=== PATIENT | female | born 1945 | race Caucasian/White ===

== ENCOUNTER → 2016-09-21 | Outpatient (CLI) | payer BC, MEDICARE ==
[~2016-09-21] VITALS: Ht 157.5 cm; Wt 50.8 kg
[~2016-09-21] MED LIST: AMLO10TA PO; ASPI325T PO; CATA0.3D TOP; CIPR500T89 PO; FLAG500T PO; IMDU60TA PO; LISI-538 PO; NS 1,000 ML IV ONE; PROPOFOL 200 MG/20 ML VIAL As Ordered ONE; TOPR25TA PO; TYLE325T5 PO; ZEST1TAB9 PO; tums PO
--- NOTE | 2016-09-21 10:14 | ROOR ---
Patient Name: Lora Juan Procedure Date: 09/21/2016 9:57 AM Date of : 1945 Age: 70 Room: [facility] Gender: Female Note Status: Finalized Procedure: Colonoscopy Indications: Screening for colorectal malignant neoplasm Providers: Eamon BE MD Referring MD: TIFFANIE COLBERT DO Requesting Provider: Medicines: Monitored Anesthesia Care Complications: No immediate complications. Procedure: Pre-Anesthesia Assessment: - The heart rate, respiratory rate, oxygen saturations, blood pressure, adequacy of pulmonary ventilation, and response to care were monitored throughout the procedure. The Colonoscope was introduced through the anus and advanced to the cecum, identified by appendiceal orifice and ileocecal valve. The colonoscopy was performed without difficulty. The patient tolerated the procedure well. The quality of the bowel preparation was good. Findings: The perianal and digital rectal examinations were normal. A few medium-mouthed diverticula were found in the sigmoid colon. Small Internal Hemorrhoids. The entire examined colon appeared normal on direct and retroflexion views. The terminal ileum appeared normal. Impression: - Mild diverticulosis in the sigmoid colon. - Small Internal Hemorrhoids. - The entire colon is normal on direct and retroflexion views. - The examined portion of the ileum was normal. - No specimens collected. Recommendation: - Repeat colonoscopy in 10 years for screening purposes. Eamon Be MD Eamon BE MD 09/21/2016 10:14:34 AM This report has been signed electronically. Number of Addenda: 0 Note Initiated On: 09/21/2016 9:57 AM Estimated Blood Loss: Estimated blood loss: none.
[2016-09-21 10:40] VITALS: BP 118/73
== END | disposition home or self-care (01) ==
LOC: M OPP 08:52
PROVIDERS: ATTEND Internal Medicine Gastroenterology
DX: Z12.11 Encounter for screening for malignant neoplasm of colon (principal); K57.30 Diverticulosis of large intestine without perforation or abscess without bleeding; K64.8 Other hemorrhoids; E05.90 Thyrotoxicosis, unspecified without thyrotoxic crisis or storm; F41.9 Anxiety disorder, unspecified; I10 Essential (primary) hypertension; Z88.0 Allergy status to penicillin; Z88.2 Allergy status to sulfonamides; Z91.02 Food additives allergy status; Z79.899 Other long term (current) drug therapy; Z79.82 Long term (current) use of aspirin

== ENCOUNTER 2017-07-20 18:10 | Emergency (ER) | payer OTHER, BC ==
[2017-07-20] MEDS: NS 500 ML IV (19:15)
[2017-07-20] MEDS: fentaNYL 100 MCG/2 ML INJECTION (J3010) IV (19:41)
[2017-07-20] MEDS: ONDANSETRON 4MG/2ML VIAL (J2405) IV (19:41)
[2017-07-20 20:32] LABS: BASO # 0.1 10^3/uL (0.0-0.2); BASO % 0.7 % (0.0-1.0); EOS # 0.2 10^3/uL (0.0-0.50); EOS % 3.1 % (0.0-3.0); HEMATOCRIT 42.4 % (36.0-47.0); HEMOGLOBIN 13.8 g/dl (12.0-15.5); IMMATURE GRANULOCYTE % 0.1 % (0-3.0); LYMPH # 1.7 10^3/uL (1.5-4.5); LYMPH % 24.1 % (24.0-44.0); MEAN CORPUSCULAR HEMOGLOBIN 30.3 pg (27.0-33.0); MEAN CORPUSCULAR HGB CONC 32.5 g/dl (32.0-36.5); MEAN CORPUSCULAR VOLUME 93.2 fl (80.0-96.0); MONO # 0.4 10^3/uL (0.0-0.8); MONO % 5.7 % (0.0-5.0); NEUTROPHILS # 4.6 10^3/uL (1.8-7.7); NEUTROPHILS % 66.3 % (36.0-66.0); PLATELET COUNT, AUTOMATED 228 10^3/uL (150-450); RED BLOOD COUNT 4.55 10^6/uL (4.00-5.40); RED CELL DISTRIBUTION WIDTH 12.2 % (11.5-14.5)
[2017-07-20 20:33] LABS: ALBUMIN 3.9 GM/DL (3.2-5.2); ALBUMIN/GLOBULIN RATIO 0.98 (1.00-1.93); ALKALINE PHOSPHATASE 109 U/L (45-117); ALT/SGPT 37 U/L (12-78); ANION GAP 6 MEQ/L (8-16); AST/SGOT 34 U/L (7-37); BILIRUBIN,DIRECT < 0.1 MG/DL (0.0-0.2); BILIRUBIN,TOTAL 0.2 MG/DL (0.2-1.0); BLOOD UREA NITROGEN 26 MG/DL (7-18); CALCIUM LEVEL 8.7 MG/DL (8.8-10.2); CARBON DIOXIDE LEVEL 26 MEQ/L (21-32); CHLORIDE LEVEL 110 MEQ/L (98-107); CREATININE FOR GFR 0.99 MG/DL (0.55-1.30); GLOMERULAR FILTRATION RATE 58.9 (>39); GLUCOSE, FASTING 129 MG/DL (70-100); LIPASE 290 U/L (73-393); POTASSIUM SERUM 4.1 MEQ/L (3.5-5.1); SODIUM LEVEL 142 MEQ/L (136-145); TOTAL PROTEIN 7.9 GM/DL (6.4-8.2)
[2017-07-20] MEDS ORDERED: ISOVUE-370 76% 100ML VIAL (Q9967) As Ordered (20:42)
[2017-07-20 20:48] LABS: INR 0.96; PROTHROMBIN TIME 12.9 SECONDS (12.4-14.5)
[2017-07-20 20:49] LABS: PARTIAL THROMBOPLASTIN TIME 28.9 SECONDS (26.8-37.9)
[2017-07-20] MEDS: ACETAMINOPHEN TAB 650MG DOSE (2X325MG) PO (22:35)
== END 2017-07-20 23:10 | disposition home or self-care (01) ==
LOC: M ED 18:10
DX: Z04.1 Encounter for examination and observation following transport accident (principal); I10 Essential (primary) hypertension; F41.9 Anxiety disorder, unspecified; Z79.82 Long term (current) use of aspirin; Z79.899 Other long term (current) drug therapy; Z88.0 Allergy status to penicillin; Z91.018 Allergy to other foods; Z88.2 Allergy status to sulfonamides
CPT/HCPCS: J2405

== ENCOUNTER 2017-10-06 09:44 | Inpatient (IN) | payer MEDICARE, BC, OTHER ==
[2017-10-06 10:39] LABS: BASO % 0.3 % (0.0-1.0); EOS # 0.1 10^3/uL (0.0-0.50); EOS % 0.9 % (0.0-3.0); HEMATOCRIT 38.7 % (36.0-47.0); HEMOGLOBIN 12.5 g/dl (12.0-15.5); IMMATURE GRANULOCYTE % 0.3 % (0-3.0); LYMPH # 1.4 10^3/uL (1.5-4.5); LYMPH % 14.1 % (24.0-44.0); MEAN CORPUSCULAR HEMOGLOBIN 30.6 pg (27.0-33.0); MEAN CORPUSCULAR HGB CONC 32.3 g/dl (32.0-36.5); MEAN CORPUSCULAR VOLUME 94.9 fl (80.0-96.0); MONO # 0.5 10^3/uL (0.0-0.8); MONO % 5.1 % (0.0-5.0); NEUTROPHILS # 8.1 10^3/uL (1.8-7.7); NEUTROPHILS % 79.3 % (36.0-66.0); PLATELET COUNT, AUTOMATED 212 10^3/uL (150-450); RED BLOOD COUNT 4.08 10^6/uL (4.00-5.40); RED CELL DISTRIBUTION WIDTH 12.5 % (11.5-14.5); WHITE BLOOD COUNT 10.2 10^3/uL (4.0-10.0)
[2017-10-06 10:51] LABS: INR 0.98; PARTIAL THROMBOPLASTIN TIME 24.4 SECONDS (26.8-37.9); PROTHROMBIN TIME 13.1 SECONDS (12.4-14.5)
[2017-10-06 11:00] LABS: ALBUMIN 3.6 GM/DL (3.2-5.2); ALBUMIN/GLOBULIN RATIO 1.03 (1.00-1.93); ALKALINE PHOSPHATASE 75 U/L (45-117); ALT/SGPT 26 U/L (12-78); ANION GAP 8 MEQ/L (8-16); AST/SGOT 14 U/L (7-37); BILIRUBIN,DIRECT 0.1 MG/DL (0.0-0.2); BILIRUBIN,TOTAL 0.5 MG/DL (0.2-1.0); BLOOD UREA NITROGEN 42 MG/DL (7-18); CARBON DIOXIDE LEVEL 27 MEQ/L (21-32); CHLORIDE LEVEL 111 MEQ/L (98-107); CPK CREATINE PHOSPHOKINASE 41 U/L (26-192); CREATININE FOR GFR 0.94 MG/DL (0.55-1.30); FREE T4 0.99 NG/DL (0.76-1.46); GLOMERULAR FILTRATION RATE > 60.0 (>39); GLUCOSE, FASTING 111 MG/DL (70-100); POTASSIUM SERUM 4.1 MEQ/L (3.5-5.1); SODIUM LEVEL 146 MEQ/L (136-145); TOTAL PROTEIN 7.1 GM/DL (6.4-8.2); TROPONIN I < 0.02 NG/ML (< 0.10)
[2017-10-06 11:05] LABS: CK-MB VALUE MASS < 1.0 NG/ML (<3.6); MB/CK RELATIVE INDEX 2.43 (< OR =4); THYROID STIMULATING HORMONE 0.748 uIU/ML (0.358-3.740)
[2017-10-06] MEDS: NS 1,000 ML IV ×2 (11:06→18:35)
[2017-10-06 11:20] LABS: LIPASE 168 U/L (73-393); MAGNESIUM LEVEL 2.1 MG/DL (1.8-2.4); PHOSPHORUS LEVEL 2.6 MG/DL (2.5-4.9)
[2017-10-06] MEDS: NS 500 ML IV ×2 (11:32→14:15)
[2017-10-06] MEDS: GASTROGRAFIN SOLUTION 30ML PO ×2 (11:55→12:05)
[2017-10-06] MEDS ORDERED: traMADol 50 MG TAB PO (15:00)
[2017-10-06] MEDS: PANTOPRAZOLE 40MG INJ (PROTONIX) (C9113) IV ×2 (15:10→20:41)
[2017-10-06] MEDS ORDERED: GLUCAGON FOR INJ 1 MG VIAL (J1610) SC (18:30)
[2017-10-06] MEDS ORDERED: GLUCOSE 4 GM CHEW TABLET PO (18:30)
[2017-10-06] MEDS ORDERED: DEXTROSE 50% 50 ML SYRINGE IV (18:30)
[2017-10-06] MEDS: METOPROLOL SUCC *XL* 25MG TAB (TopROL *XL*) PO (20:41)
[2017-10-06 21:13] LABS: CK-MB VALUE MASS 1.1 NG/ML (<3.6); CPK CREATINE PHOSPHOKINASE 53 U/L (26-192); MB/CK RELATIVE INDEX 2.07 (< OR =4); TROPONIN I < 0.02 NG/ML (< 0.10)
[2017-10-07 00:12] LABS: HEMATOCRIT 30.7 % (36.0-47.0)
[2017-10-07 01:18] LABS: BEDSIDE GLUCOSE 74 MG/DL (83-110)
[2017-10-07] MEDS: NS 1,000 ML IV (03:39)
[2017-10-07 05:12] LABS: HEMATOCRIT 30.8 % (36.0-47.0); HEMOGLOBIN 10.1 g/dl (12.0-15.5); MEAN CORPUSCULAR HEMOGLOBIN 30.5 pg (27.0-33.0); MEAN CORPUSCULAR HGB CONC 32.8 g/dl (32.0-36.5); MEAN CORPUSCULAR VOLUME 93.1 fl (80.0-96.0); PLATELET COUNT, AUTOMATED 169 10^3/uL (150-450); RED BLOOD COUNT 3.31 10^6/uL (4.00-5.40); RED CELL DISTRIBUTION WIDTH 12.3 % (11.5-14.5); WHITE BLOOD COUNT 7.2 10^3/uL (4.0-10.0)
[2017-10-07 05:50] LABS: ALBUMIN 3.1 GM/DL (3.2-5.2); ALBUMIN/GLOBULIN RATIO 1.11 (1.00-1.93); ALKALINE PHOSPHATASE 65 U/L (45-117); ALT/SGPT 22 U/L (12-78); ANION GAP 8 MEQ/L (8-16); AST/SGOT 17 U/L (7-37); BILIRUBIN,TOTAL 0.7 MG/DL (0.2-1.0); BLOOD UREA NITROGEN 22 MG/DL (7-18); CALCIUM LEVEL 8.2 MG/DL (8.8-10.2); CARBON DIOXIDE LEVEL 25 MEQ/L (21-32); CHLORIDE LEVEL 113 MEQ/L (98-107); CK-MB VALUE MASS 1.8 NG/ML (<3.6); CPK CREATINE PHOSPHOKINASE 68 U/L (26-192); CREATININE FOR GFR 0.69 MG/DL (0.55-1.30); GLOMERULAR FILTRATION RATE > 60.0 (>39); GLUCOSE, FASTING 79 MG/DL (70-100); MAGNESIUM LEVEL 1.9 MG/DL (1.8-2.4); MB/CK RELATIVE INDEX 2.64 (< OR =4); SODIUM LEVEL 146 MEQ/L (136-145); TOTAL PROTEIN 5.9 GM/DL (6.4-8.2); TROPONIN I 0.02 NG/ML (< 0.10)
[2017-10-07] MEDS: METOPROLOL SUCC *XL* 25MG TAB (TopROL *XL*) PO ×2 (09:03→21:27)
[2017-10-07] MEDS: SUCRALFATE SUSP 1GM/10ML UD PO ×4 (09:03→21:27)
[2017-10-07] MEDS: PANTOPRAZOLE 40MG INJ (PROTONIX) (C9113) IV ×2 (09:04→21:28)
[2017-10-07] MEDS: NS 0.45% 1,000 ML IV (10:16)
[2017-10-07] MEDS: ACETAMINOPHEN 500 MG TAB PO (15:25)
[2017-10-08 00:21] LABS: HEMATOCRIT 28.1 % (36.0-47.0); HEMOGLOBIN 9.5 g/dl (12.0-15.5)
[2017-10-08 05:56] LABS: HEMATOCRIT 29.8 % (36.0-47.0); HEMOGLOBIN 9.9 g/dl (12.0-15.5)
[2017-10-08 06:21] LABS: ANION GAP 4 MEQ/L (8-16); BLOOD UREA NITROGEN 10 MG/DL (7-18); CALCIUM LEVEL 8.9 MG/DL (8.8-10.2); CARBON DIOXIDE LEVEL 29 MEQ/L (21-32); CHLORIDE LEVEL 110 MEQ/L (98-107); CREATININE FOR GFR 0.69 MG/DL (0.55-1.30); GLOMERULAR FILTRATION RATE > 60.0 (>39); GLUCOSE, FASTING 102 MG/DL (70-100); POTASSIUM SERUM 3.7 MEQ/L (3.5-5.1); SODIUM LEVEL 143 MEQ/L (136-145)
[2017-10-08] MEDS: SUCRALFATE SUSP 1GM/10ML UD PO ×4 (07:30→21:35)
[2017-10-08] MEDS: PANTOPRAZOLE 40MG INJ (PROTONIX) (C9113) IV ×2 (08:48→21:37)
[2017-10-08] MEDS: METOPROLOL SUCC *XL* 25MG TAB (TopROL *XL*) PO ×2 (08:48→21:33)
[2017-10-08] MEDS: ACETAMINOPHEN 500 MG TAB PO ×2 (10:10→20:14)
[2017-10-08] MEDS: D5W/0.45% SODIUM CHLORIDE 1,000 ML IV (12:16)
[2017-10-08 12:26] LABS: HEMATOCRIT 30.4 % (36.0-47.0); HEMOGLOBIN 10.2 g/dl (12.0-15.5)
[2017-10-08] MEDS: SODIUM CHLORIDE 0.9% INJ 10 ML SYR IV (17:48)
[2017-10-08 19:33] LABS: HEMATOCRIT 28.1 % (36.0-47.0); HEMOGLOBIN 9.3 g/dl (12.0-15.5)
[2017-10-09] MEDS: SODIUM CHLORIDE 0.9% INJ 10 ML SYR IV ×2 (00:20→05:45)
[2017-10-09 00:29] LABS: HEMATOCRIT 28.9 % (36.0-47.0); HEMOGLOBIN 9.7 g/dl (12.0-15.5)
[2017-10-09 06:32] LABS: HEMATOCRIT 29.5 % (36.0-47.0); HEMOGLOBIN 9.8 g/dl (12.0-15.5)
[2017-10-09 07:22] LABS: ANION GAP 8 MEQ/L (8-16); BLOOD UREA NITROGEN 11 MG/DL (7-18); CALCIUM LEVEL 8.7 MG/DL (8.8-10.2); CARBON DIOXIDE LEVEL 29 MEQ/L (21-32); CHLORIDE LEVEL 108 MEQ/L (98-107); CREATININE FOR GFR 0.71 MG/DL (0.55-1.30); GLOMERULAR FILTRATION RATE > 60.0 (>39); GLUCOSE, FASTING 98 MG/DL (70-100); POTASSIUM SERUM 3.7 MEQ/L (3.5-5.1); SODIUM LEVEL 145 MEQ/L (136-145)
[2017-10-09] MEDS: SUCRALFATE SUSP 1GM/10ML UD PO ×2 (07:52→12:42)
[2017-10-09] MEDS: METOPROLOL SUCC *XL* 25MG TAB (TopROL *XL*) PO (07:52)
[2017-10-09] MEDS: PANTOPRAZOLE 40MG INJ (PROTONIX) (C9113) IV (07:53)
[2017-10-09] MEDS: ACETAMINOPHEN 500 MG TAB PO (09:45)
[2017-10-09 11:32] LABS: HEMATOCRIT 29.3 % (36.0-47.0); HEMOGLOBIN 9.9 g/dl (12.0-15.5)
[2017-10-10 00:06] LABS: H PYLORI STOOL ANTIGEN Negative (Negative)
[2017-10-11 00:07] LABS: O+P EXAM Final report (.)
== END 2017-10-09 14:04 | disposition home or self-care (01) | DRG 391 ==
LOC: M MS4PR 10-08 09:06 → M ED 09:44 → M ED INP 14:43 → M PCU 18:08
PROC: 02HV33Z Insertion of Infusion Device into Superior Vena Cava, Percutaneous Approach (ICD-10-PCS; principal; 2017-10-08)
DX: A08.4 Viral intestinal infection, unspecified (principal); K27.4 Chronic or unspecified peptic ulcer, site unspecified, with hemorrhage; E87.0 Hyperosmolality and hypernatremia; E86.0 Dehydration; I10 Essential (primary) hypertension

== ENCOUNTER → 2017-11-30 | Outpatient (CLI) | payer BC ==
[2017-11-30 12:02] LABS: BASO # 0.1 10^3/uL (0.0-0.2); BASO % 0.6 % (0.0-1.0); EOS # 0.1 10^3/uL (0.0-0.50); EOS % 1.6 % (0.0-3.0); HEMOGLOBIN 11.3 g/dl (12.0-15.5); IMMATURE GRANULOCYTE % 0.1 % (0-3.0); LYMPH # 1.9 10^3/uL (1.5-4.5); LYMPH % 24.6 % (24.0-44.0); MEAN CORPUSCULAR HEMOGLOBIN 27.9 pg (27.0-33.0); MEAN CORPUSCULAR HGB CONC 30.5 g/dl (32.0-36.5); MEAN CORPUSCULAR VOLUME 91.4 fl (80.0-96.0); MONO # 0.5 10^3/uL (0.0-0.8); MONO % 6.3 % (0.0-5.0); NEUTROPHILS # 5.2 10^3/uL (1.8-7.7); NEUTROPHILS % 66.8 % (36.0-66.0); PLATELET COUNT, AUTOMATED 249 10^3/uL (150-450); RED BLOOD COUNT 4.05 10^6/uL (4.00-5.40); RED CELL DISTRIBUTION WIDTH 13.4 % (11.5-14.5); WHITE BLOOD COUNT 7.7 10^3/uL (4.0-10.0)
== END ==
LOC: M ADAMS 10:21
DX: K92.1 Melena (principal); D64.9 Anemia, unspecified
CPT/HCPCS: 85025

== ENCOUNTER 2017-12-13 12:27 | Day surgery (SDC) | payer BC, MEDICARE ==
[2017-12-13] MEDS ORDERED: LIDOCAINE 2% INJ 100 MG/5 ML SDV (FOR ANES.) As Ordered (13:13)
[2017-12-13] MEDS ORDERED: PROPOFOL 200 MG/20 ML VIAL As Ordered (13:13)
[2017-12-13] MEDS: NS 1,000 ML IV (13:23)
== END 2017-12-13 15:19 | disposition home or self-care (01) ==
LOC: M OPP 12:27
DX: D62 Acute posthemorrhagic anemia (principal); K92.1 Melena; K31.89 Other diseases of stomach and duodenum; K29.70 Gastritis, unspecified, without bleeding; I10 Essential (primary) hypertension; E05.90 Thyrotoxicosis, unspecified without thyrotoxic crisis or storm; Z87.19 Personal history of other diseases of the digestive system; K57.32 Diverticulitis of large intestine without perforation or abscess without bleeding; K21.9 Gastro-esophageal reflux disease without esophagitis; R12 Heartburn; R23.3 Spontaneous ecchymoses; R53.1 Weakness; M19.90 Unspecified osteoarthritis, unspecified site; F41.9 Anxiety disorder, unspecified; R51 Headache; Z91.018 Allergy to other foods; Z88.0 Allergy status to penicillin; Z88.2 Allergy status to sulfonamides; Z79.899 Other long term (current) drug therapy
CPT/HCPCS: 43239

== ENCOUNTER → 2018-01-15 | Outpatient (REF) | payer BC | LOC: M LAB REF 16:46 | DX: N39.0 Urinary tract infection, site not specified (principal) | CPT/HCPCS: 87186 ==

== ENCOUNTER 2018-11-21 11:19 | Emergency (ER) | payer BC ==
[~2018-11-21] VITALS: Ht 157.5 cm; Wt 48.3 kg
[~2018-11-21 11:19] MED LIST changes: +ASPI-1 PO; -ASPI325T PO; +CIPR-249 PO; -CIPR500T89 PO; +LISI10TA4 PO; +METO1TAB7 PO; -NS 1,000 ML IV ONE; +PANT40TA3 PO; -PROPOFOL 200 MG/20 ML VIAL As Ordered ONE; +[UNRECOGNIZED DRUG - CODE] TOP
[2018-11-21] MEDS ORDERED: NS 1,000 ML IV ONE (12:00)
[2018-11-21] MEDS ORDERED: IPRATROPIUM 0.5MG/ALBUTEROL 2.5MG INH SOL UD 3ML (DUONEB)(J7620) NEB ONE (12:00)
[2018-11-21 12:57] LABS: BASO % 0.5 % (0.0-1.0); EOS # 0.1 10^3/uL (0.0-0.50); HEMATOCRIT 43.3 % (36.0-47.0); HEMOGLOBIN 13.8 g/dl (12.0-15.5); LYMPH # 1.9 10^3/uL (1.5-4.5); LYMPH % 23.6 % (24.0-44.0); MEAN CORPUSCULAR HEMOGLOBIN 31.2 pg (27.0-33.0); MEAN CORPUSCULAR HGB CONC 31.9 g/dl (32.0-36.5); MONO # 0.6 10^3/uL (0.0-0.8); MONO % 7.8 % (0.0-5.0); NEUTROPHILS # 5.4 10^3/uL (1.8-7.7); NEUTROPHILS % 66.9 % (36.0-66.0); PLATELET COUNT, AUTOMATED 234 10^3/uL (150-450); RED BLOOD COUNT 4.42 10^6/uL (4.00-5.40)
[2018-11-21 13:08] LABS: INR 1.01
[2018-11-21 13:12] LABS: MONO SCRN NEGATIVE (NEGATIVE)
[2018-11-21] MEDS ORDERED: ALPRAZolam 0.25 MG TAB PO ONE (13:15)
[2018-11-21 13:26] LABS: ALBUMIN 3.6 GM/DL (3.2-5.2); ALT/SGPT 75 U/L (12-78); BILIRUBIN,DIRECT 0.1 MG/DL (0.0-0.2); BILIRUBIN,TOTAL 0.4 MG/DL (0.2-1.0); BLOOD UREA NITROGEN 34 MG/DL (7-18); CALCIUM LEVEL 9.8 MG/DL (8.8-10.2); CARBON DIOXIDE LEVEL 27 MEQ/L (21-32); CHLORIDE LEVEL 107 MEQ/L (98-107); CK-MB VALUE MASS < 1.0 NG/ML (<3.6); CPK CREATINE PHOSPHOKINASE 74 U/L (26-192); CREATININE FOR GFR 0.89 MG/DL (0.55-1.30); GLOMERULAR FILTRATION RATE > 60.0 (>39); GLUCOSE, FASTING 103 MG/DL (70-100); MB/CK RELATIVE INDEX 1.35 (< OR =4); NT-PRO BNP 164 PG/ML (<125); POTASSIUM SERUM 4.4 MEQ/L (3.5-5.1); SODIUM LEVEL 141 MEQ/L (136-145); THYROID STIMULATING HORMONE 0.961 uIU/ML (0.358-3.740); THYROXINE (T4) 10.8 UG/DL (4.5-12.0); TOTAL PROTEIN 8.2 GM/DL (6.4-8.2); TROPONIN I < 0.02 NG/ML (< 0.10)
[2018-11-21 13:45] LABS: BILIRUBIN, URINE MANUAL N (NEGATIVE); GLUCOSE, URINE (UA) MANUAL N mg/dL (NEGATIVE); KETONE, URINE MANUAL N mg/dL (NEGATIVE); UROBILINOGEN, URINE MANUAL N mg/dl (NORMAL)
--- NOTE | 2018-11-21 13:50 | REP ---
CHEST X-RAY: Two views. HISTORY: Dyspnea and cough. COMPARISON STUDY: October 06, 2017. FINDINGS: There is a new opacity in the right medial lung base on today's chest x-ray which may be infiltrate. It is not visualized on the lateral radiograph. Heart is not enlarged. Lung rubin are otherwise clear. The aorta somewhat tortuous. Pulmonary vasculature is not increased. IMPRESSION: Large opacity in the right medial lung base new from the prior study may reflect infiltrate. This is not seen on lateral radiograph. Consider chest CT scanning. Electronically Signed by Sourav Pop MD 11/21/2018 02:20 P
[2018-11-21 13:54] LABS: AMORPHOUS SEDIMENT, URINE SMALL AMOUNT (NEGATIVE); BACTERIA, URINE SMALL AMOUNT; HYALINE CAST, URINE NONE SEEN /lpf (0-1); MUCUS, URINE SMALL AMOUNT (NEGATIVE); SQUAMOUS EPITHELIAL CELL URINE SMALL AMOUNT /hpf (SMALL AMT); TRANSITIONAL EPI CELLS, URINE SMALL AMOUNT /hpf
[2018-11-21] MEDS ORDERED: ISOVUE-370 76% 100ML VIAL (Q9967) As Ordered ONE (14:26)
--- NOTE | 2018-11-21 14:51 | REP ---
Clinical: Abdominal pain. Technique: Axial contrast enhanced images from the lung bases to the pubic symphysis using 100 ml Isovue 70 intravenous contrast material with coronal and sagittal re-formations. Comparison: 10/06/2017. Findings: The lung bases demonstrate mass-like consolidation in the basilar right middle lobe. Liver demonstrates few scattered hypodensities suggesting cysts and stable compared to prior examination. Spleen, pancreas, gallbladder, and bilateral adrenal glands are normal. Kidneys demonstrate bilateral cysts along with small 2 mm nonobstructing bilateral intrarenal calculi. Evaluation of the enteric system demonstrates mucosal thickening involving the sigmoid colon suggesting the possibility of infectious/inflammatory colitis. No bowel obstruction or free air to suggest perforation. Pelvis demonstrates normal bladder and evidence of prior hysterectomy. No ascites. No free air. No adenopathy. Abdominal aorta without aneurysm or dissection. Musculoskeletal structures demonstrate degenerative changes. Impression: 1. Hepatic and renal cysts essentially unchanged compared to prior examination. 2. Bilateral nephrolithiasis without hydronephrosis or perinephric stranding. 3. Findings suggesting sigmoid colitis and correlation is recommended. 4. Mass-like consolidation in the basilar right middle lobe requires followup to resolution. Electronically Signed by Peter Deng MD 11/21/2018 02:42 P
--- NOTE | 2018-11-21 15:02 | REP ---
CT of the chest with IV contrast: Comparison is the PA and lateral chest performed earlier today. There is a bilobed 3.7 cm mass in the medial segment right middle lobe corresponding to the density inferiorly in the right lung on the comparison plain film study. This mass was not present on the prior CT of 03/01/2011. Images from the prior prior CT dated 07/20/2017 are not available for reasons unknown to this examiner. The transcribed report of that CT does not described a mass in this location. The remainder of the lung rubin are clear and unchanged. The there is no mediastinal or hilar lymph node enlargement. There is no axillary lymph node enlargement. The thoracic aorta is unremarkable. Cardiac size is normal. There is no pericardial effusion. In the upper abdomen there is a cyst in the dome of the liver measuring approximate 1 cm in diameter. There is no adrenal mass. There are parapelvic cysts in the kidneys. Impression: There is a 3.7 cm bilobed mass in the medial segment right middle lobe as described. There is no adenopathy, infiltrate or effusion. Electronically Signed by Nathan Espinoza MD 11/21/2018 02:53 P
[2018-11-21] MEDS ORDERED: CIPR-249 PO (16:37)
[2018-11-21] MEDS ORDERED: FLAG500T PO (16:37)
[2018-11-21 16:57] VITALS: BP 159/74
--- NOTE | 2018-11-22 21:49 | ECGEPIP ---
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
--- NOTE | 2018-11-25 21:04 | ED PDOC ---
Post-Departure Follow-Up also ct abd/p and cxr faxed to dr cantu for fu Kyrie Canela MD Nov 25, 2018 21:04
--- NOTE | 2018-11-25 21:04 | ED PDOC ---
Post-Departure Follow-Up dr dunne faxed formal report of ct chest for fu Kyrie Canela MD Nov 25, 2018 21:03
== END 2018-11-21 16:59 | disposition home or self-care (01) ==
LOC: M ED 11:19
DX: R91.1 Solitary pulmonary nodule (principal); K52.9 Noninfective gastroenteritis and colitis, unspecified; E11.9 Type 2 diabetes mellitus without complications; I10 Essential (primary) hypertension; E05.90 Thyrotoxicosis, unspecified without thyrotoxic crisis or storm; F41.9 Anxiety disorder, unspecified; Z79.899 Other long term (current) drug therapy; Z88.0 Allergy status to penicillin; Z88.2 Allergy status to sulfonamides
CPT/HCPCS: 36415; 71046; 71260; 74177; 80048; 80076; 81000; 82550; 82553; 83880; 84436; 84443; 84484; 85025; 85610; 86308; 87086; 87880; 93005; 94640; 99284; Q9967

== ENCOUNTER → 2018-12-18 | Outpatient (CLI) | payer BC ==
--- NOTE | 2018-12-19 08:57 | REP ---
Clinical: Follow up abnormal findings. Technique: Axial noncontrast images from the thoracic inlet to the upper abdomen with coronal and sagittal re-formations. Comparison: 11/21/2018. Findings: Bilobed mass/consolidation involving the medial right middle lobe currently measures approximately 2.5 cm maximal diameter and appears decreased in size compared to prior examination. Remainder of the bilateral lung rubin are relatively well aerated and clear. No further consolidation, nodule or mass lesion. No effusion. No pneumothorax. Evaluation for adenopathy is limited due to lack of contrast but no significant pathologic lymph nodes are identified. Thoracic aorta and heart/pericardium appear relatively normal. Surrounding musculoskeletal structures without focal osseous abnormality. Limited upper abdomen demonstrates normal bilateral adrenal glands along with suspected hepatic and renal cysts. Impression: Bilobed area of mass / consolidation in the right middle lobe slightly decreased in size from prior examination. Consider continued short-term follow-up at 3 months to evaluate for complete resolution. Electronically Signed by Peter Deng MD 12/19/2018 08:48 A
== END ==
LOC: M RAD 08:53
PROVIDERS: ATTEND Internal Medicine Pulmonary Disease
DX: R91.8 Other nonspecific abnormal finding of lung field (principal)

== ENCOUNTER → 2019-03-07 | Outpatient (CLI) | payer BC ==
--- NOTE | 2019-03-07 12:40 | REP ---
CT CHEST WITHOUT CONTRAST: HISTORY: Abnormal finding of the lung field. Comparison chest CT study is from November 21, 2018 and December 18, 2018. There is a comparison chest CT study from July 20, 2017 as well. A remote chest CT study is dated March 01, 2011. CT FINDINGS: There is a linear fibroatelectatic density in the right middle lobe, decreased in size from the December 18, 2018 prior study. It remains more prominent than the fibrosis seen in this location on July 20, 2017. No pulmonary parenchymal mass lesion or central endobronchial or hilar lesion is appreciated. There is stable pleuroparenchymal scarring in the left apex. This is unchanged from the 2011 study. No other significant pulmonary nodule. No new infiltrate is seen. No pleural or pericardial effusion is observed. No hilar or mediastinal mass or adenopathy is seen. There is a cyst in the liver near the dome 1.2 cm in greatest diameter. No adrenal lesion is seen. There is a right upper pole renal cyst and an intrarenal calculus again noted. Left renal cysts are also present. 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 Otherwise stable findings. Electronically Signed by Sourav Pop MD 03/07/2019 06:29 P
== END ==
LOC: M RAD 07:57
PROVIDERS: ATTEND Internal Medicine Pulmonary Disease
DX: R91.8 Other nonspecific abnormal finding of lung field (principal)

== ENCOUNTER → 2019-05-07 | Outpatient (REF) | payer BC | LOC: M LABDRWAD 12:59 | PROVIDERS: ATTEND Internal Medicine Cardiovascular Disease | DX: I49.1 Atrial premature depolarization (principal) ==

== ENCOUNTER → 2019-09-05 | Outpatient (CLI) | payer OTHER ==
--- NOTE | 2019-09-05 15:16 | REP ---
REASON FOR EXAM: Followup. All priors were reviewed, the latest of which is dated 03/07/2019 and showed chronic fibrotic changes in the right middle lobe and other chronic changes, status quo. Mediastinum and pulmonary hoang are unchanged. There is no evidence of a mass or adenopathy. There are no pleural or pericardial effusions. There is no change in appearance of the imaged upper abdomen or imaged osseous structures. Evaluation of the lung rubin shows stable chronic changes. There is mild cylindrical bronchiectasis and there are chronic fibrotic changes, status quo. No new abnormal nodules, masses, or opacities have developed. IMPRESSION: Stable CT findings, as described above. Electronically Signed by Wing Jay DO 09/05/2019 04:00 P
== END ==
LOC: M RAD 13:10
PROVIDERS: ATTEND Internal Medicine Pulmonary Disease
DX: R91.8 Other nonspecific abnormal finding of lung field (principal)

== ENCOUNTER 2020-10-11 05:03 | Inpatient (IN) | payer MEDICARE, BC, OTHER ==
[~2020-10-11] VITALS: Ht 157.5 cm; Wt 55.1 kg
[~2020-10-11 05:03] MED LIST changes: -LISI-538 PO; +LISI10TA22 PO; -LISI10TA4 PO; +LISI20TA33 PO; +PANT40TA29 PO; -PANT40TA3 PO
[2020-10-11] MEDS ORDERED: LOSA100T50 PO (05:24)
[2020-10-11] MEDS ORDERED: PROAAER10 PO (05:24)
[2020-10-11] MEDS ORDERED: LIDO1PAD TOP (05:24)
[2020-10-11] MEDS ORDERED: CARV3.12 PO (05:24)
[2020-10-11 05:48] LABS: BASO % 0.3 % (0.0-1.0); EOS # 0.1 10^3/uL (0.0-0.5); EOS % 0.5 % (0.0-3.0); HEMATOCRIT 46.7 % (36.0-47.0); HEMOGLOBIN 14.9 g/dl (12.0-15.5); LYMPH # 1.3 10^3/uL (1.5-5.0); LYMPH % 12.5 % (24.0-44.0); MEAN CORPUSCULAR HGB CONC 31.9 g/dl (32.0-36.5); MEAN CORPUSCULAR VOLUME 97.1 fl (80.0-96.0); MONO # 0.7 10^3/uL (0.0-0.8); MONO % 6.2 % (2.0-8.0); NEUTROPHILS # 8.3 10^3/uL (1.5-8.5); NEUTROPHILS % 79.8 % (36.0-66.0); PLATELET COUNT, AUTOMATED 194 10^3/uL (150-450); RED BLOOD COUNT 4.81 10^6/uL (4.00-5.40); WHITE BLOOD COUNT 10.4 10^3/uL (4.0-10.0)
[2020-10-11 06:11] LABS: ALBUMIN 3.6 GM/DL (3.2-5.2); ALT/SGPT 26 U/L (12-78); BILIRUBIN,DIRECT 0.3 MG/DL (0.0-0.2); BILIRUBIN,TOTAL 1.1 MG/DL (0.2-1.0); BLOOD UREA NITROGEN 23 MG/DL (7-18); CALCIUM LEVEL 9.3 MG/DL (8.8-10.2); CARBON DIOXIDE LEVEL 27 MEQ/L (21-32); CHLORIDE LEVEL 108 MEQ/L (98-107); CK-MB VALUE MASS < 1.0 NG/ML (<3.6); CPK CREATINE PHOSPHOKINASE 42 U/L (26-192); CREATININE FOR GFR 0.97 MG/DL (0.55-1.30); GLOMERULAR FILTRATION RATE 59.8 (>39); GLUCOSE, FASTING 125 MG/DL (70-100); LIPASE 89 U/L (73-393); MB/CK RELATIVE INDEX 2.38 (< OR =4); POTASSIUM SERUM 4.1 MEQ/L (3.5-5.1); SODIUM LEVEL 141 MEQ/L (136-145); TOTAL PROTEIN 7.5 GM/DL (6.4-8.2); TROPONIN I < 0.02 NG/ML (< 0.10)
[2020-10-11] MEDS ORDERED: MORPHINE 4 MG/ML 1ML VIAL/SYRINGE (J2270) IV ONE (06:20)
[2020-10-11] MEDS ORDERED: ONDANSETRON 4MG/2ML VIAL IV ONE (06:20)
[2020-10-11] MEDS ORDERED: NS 1,000 ML IV ONE (06:20)
[2020-10-11] MEDS ORDERED: ISOVUE-370 76% 100ML VIAL As Ordered ONE (06:33)
--- NOTE | 2020-10-11 08:28 | REPVR ---
PROCEDURE INFORMATION: Exam: CT Abdomen And Pelvis With Contrast Exam date and time: 10/11/2020 6:52 AM Age: 74 years old Clinical indication: Other: Left abdominal pain, diarrhea-->brbpr TECHNIQUE: Imaging protocol: Computed tomography of the abdomen and pelvis with contrast. Radiation optimization: All CT scans at this facility use at least one of these dose optimization techniques: automated exposure control; mA and/or kV adjustment per patient size (includes targeted exams where dose is matched to clinical indication); or iterative reconstruction. Contrast material: ISOVUE 370; Contrast volume: 100 ml; Contrast route: INTRAVENOUS (IV); COMPARISON: CT ABD/PEL W/IV CONTRAST ONLY 11/21/2018 2:27 PM FINDINGS: Lungs: Subsegmental atelectasis right middle lobe lingula. Liver: Several cysts in the liver measuring up to 11 mm. Gallbladder and bile ducts: Normal. No calcified stones. No ductal dilation. Pancreas: Normal. No ductal dilation. Spleen: Normal. No splenomegaly. Adrenal glands: Normal. No mass. Kidneys and ureters: Bilateral renal cysts measuring up to 2.2 cm. No hydronephrosis. Stomach and bowel: Diffuse thickening of the colon from the splenic flexure to the colorectal junction. Diffuse pericolonic haziness associated with the thickened colon. No abnormal bowel dilatation. Negative for colonic diverticulitis. Appendix: Appendix is normal. Intraperitoneal space: Unremarkable. No free air. No significant fluid collection. Vasculature: Mild atherosclerotic disease. No aortic aneurysm. 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 Lymph nodes: Unremarkable. No enlarged lymph nodes. Urinary bladder: Unremarkable as visualized. Reproductive: Status post hysterectomy. Bones/joints: No acute fracture. Mild degenerative spine. Soft tissues: Unremarkable. IMPRESSION: 1. Diffuse thickening of the colon. Consistent with infectious versus inflammatory versus ischemic colitis. 2. Several cysts in the liver. No change from prior. No follow-up is necessary. 3. Benign-appearing bilateral renal cysts. No change from prior. No follow-up is necessary. 4. 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 No change from prior. 5. Additional findings as described. COMMENTS: Consistent with the [employer]'s Incidental Findings Committee white paper (J Am Shaun Radiol 2018): Any incidental renal lesion less than 1 cm or classified as too small to characterize, or any incidental cystic renal lesion characterized as simple-appearing, is likely benign. No follow-up imaging is recommended for these lesions per consensus recommendations based on imaging criteria. Electronically signed by: Neena Mcconnell On 10/11/2020 08:28:06 AM
[2020-10-11] MEDS ORDERED: CIPROFLOXACIN 400 MG in IV 1 EA IV ONE (09:50)
[2020-10-11] MEDS ORDERED: LOSARTAN 50MG TABLET PO ONE (09:50)
[2020-10-11] MEDS ORDERED: metroNIDAZOLE 500 MG in IV 1 EA IV ONE (09:50)
[2020-10-11] MEDS ORDERED: IPRA6SP NARES (10:37)
[2020-10-11] MEDS ORDERED: IPRATROPIUM 0.06% NASAL SPRAY 15 ML (ATROVENT) PRN (11:00)
[2020-10-11] MEDS ORDERED: ACETAMINOPHEN TAB 650MG DOSE (2X325MG) PO PRN (11:00)
[2020-10-11] MEDS ORDERED: ALBUTEROL 90 MCG/ACT 8GM HFA INHALER INH PRN (11:00)
[2020-10-11] MEDS ORDERED: **hydrALAZINE HCL** 25 MG TAB PO PRN (11:05)
--- NOTE | 2020-10-11 11:45 | HPEPDOC ---
General Date of Admission Oct 11, 2020 at 10:54 Date of Service: Oct 11, 2020 Chief Complaint The patient is a 74-year-old female admitted with a reason for visit of Acute Hemorrhagic Colitis, Hypertensive Urgency. History of Present Illness Mrs. Juan is a 74 year old female with hypertension and diverticulosis who is here with left sided abdominal pain and hematochezia. On Sunday, she woke up with abdominal pain around midnight and had frequent diarrhea between midnight to 5AM. It was not completely watery. She went back to bed afterwards. Throughout Sunday, the pain was waxing and waning, but this morning, she had a trickle of blood down her leg. Then she past a large clot and had blood gushed out. She came to the ED for evaluation. She did not take her antihypertensives this morning, and was found to be hypertensive with SBP initially in the 200s. Otherwise, not tachycardia and no fever. WBC mildly elevated at 10.4 and hgb at 14.9. BUN mildly elevated at 23. CT abd/pelvis with IV contrast demonstrates colitis from the splenic flexure to the colorectal junction. Patient denies any fever or chills. She has some blurry vision and chest discomfort from her hypertensive urgency. She also reports anxiety and she is grieving for her mother she recently lost this April. Physical exam is significant for abdominal tenderness on the left side. Right abdomen is not tender. She tells me she had colitis before in the past but they never told her the etiology. Patient will be admitted for acute hemorrhagic colitis and hypertensive urgency. Home Medications Scheduled Carvedilol (Carvedilol) 3.125 Mg Tablet, 3.125 MG PO BID, (Reported) Losartan Potassium (Losartan Potassium) 100 Mg Tablet, 100 MG PO DAILY, (Reported) Scheduled PRN Albuterol Sulfate (Proair Hfa) 8.5 Gm Hfa.aer.ad, 2 PUFF PO Q4H PRN for SHORTNESS OF BREATH, (Reported) Ipratropium [place] (Ipratropium [place]) 15 Ml [place], 2 SPRAYS NARES BID PRN for ALLERGIES, (Reported) Lidocaine (Lidocaine) 5% Adh..patch, 1 PATCH TOP DAILY PRN for BACK PAIN, (Reported) Allergies Coded Allergies: [place] And Derivatives (Verified Allergy, Unknown, 11/21/18) Penicillins (Verified Allergy, Unknown, HIVES, 10/11/20) strawberry (Verified Allergy, Unknown, 11/21/18) tomato (Verified Allergy, Unknown, 11/21/18) Sulfa (Sulfonamide Antibiotics) (Verified Adverse Reaction, Unknown, N/V, 10/11/20) banana (Verified Adverse Reaction, Unknown, GI UPSET, 10/11/20) Past Medical History Medical History 1. Hypertension 2. Chronic low back pain 3. Diverticulosis and internal hemorrhoids on colonoscopy on [address] Be Surgical History 1. Hysterectomy 2. Coloscopy in 2017 for CRC screening 3. 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 History of CHF Mother: at 98. History of CVA Social History * Smoker: non-smoker Alcohol: Denies Drugs: denies A-FIB/CHADSVASC A-FIB History Current/History of A-Fib/PAF?: No Review of Systems Constitutional: Denies: Chills, Fever Eyes: Reports: Vision change (secondary to elevated blood pressure) ENT: Reports: Other Symptoms (dry throat) Skin: Denies: Rash Pulmonary: Denies: Dyspnea Cardiovascular: Reports: Chest Pain (from anxiety and HTN) Gastrointestinal: Reports: Abdominal Pain (left sided), Diarrhea, Hematochezia Genitourinary: Denies: Dysuria Hematologic: Reports: Bruising (reports easy bruising) Neurological: Reports: Numbness (secondary to hypertension and anxiety) Psych: Reports: Anxiety, Other Psych (Grieving, recently lost mother in April and had burial this spring) Physical Examination General Exam: Positive: Alert, Cooperative Eye Exam: Positive: EOMI; Negative: Sclera icteric ENT Exam: Positive: Atraumatic Neck Exam: Positive: Supple Chest Exam: Positive: Clear to auscultation Heart Exam: Positive: Rate Normal, Regular Rhythm Abdomen Exam: Positive: Normal bowel sounds, Tenderness (left sided) Neuro Exam: Positive: Normal Speech, Cranial Nerves 3-12 NL Psych Exam: Positive: Anxiety Vital Signs Vital Signs Date Time Temp Pulse Resp B/P (MAP) Pulse Ox O2 Delivery O2 Flow Rate FiO2 10/11/20 10:38 192/97 10/11/20 09:45 82 20 94 Room Air 10/11/20 05:15 97.5 Laboratory Data Labs 24H Laboratory Tests 2 10/11/20 05:27: Immature Granulocyte % (Auto) 0.7, Neutrophils (%) (Auto) 79.8H, Lymphocytes (%) (Auto) 12.5L, Monocytes (%) (Auto) 6.2, Eosinophils (%) (Auto) 0.5, Basophils (%) (Auto) 0.3, Neutrophils # (Auto) 8.3, Lymphocytes # (Auto) 1.3L, Monocytes # (Auto) 0.7, Eosinophils # (Auto) 0.1, Basophils # (Auto) 0.0, Nucleated Red Blood Cells % (auto) 0.0, Anion Gap 6L, Glomerular Filtration Rate 59.8, Calcium Level 9.3, Total Bilirubin 1.1H, Direct Bilirubin 0.3H, Aspartate Amino Transf (AST/SGOT) 16, Alanine Aminotransferase (ALT/SGPT) 26, Alkaline Phosphatase 116, Total Creatine Kinase 42, Creatine Kinase MB < 1.0, Creatine Kinase MB Relative Index 2.38, Troponin I < 0.02, Total Protein 7.5, Albumin 3.6, Albumin/Globulin Ratio 0.9L, Lipase 89 10/11/20 09:14: POC Lactate (Misc Panel) 0.87 10/11/20 10:42: CBC/BMP Laboratory Tests 10/11/20 05:27 Assessment/Plan Mrs. Juan is a 74 year old female with hypertension and diverticulosis who is here with left sided abdominal pain and hematochezia. Suspecting patient to have ischemic colitis given the splenic flexure colitis, tenderness of the involved segment, and hematochezia. An elevated lactic acid would indicate a severe ischemia and/or necrosis. Her lactic acid is not elevated indicating a more mild ischemic colitis. She may have had a vasospasm that temporarily reduced blood flow and cause the ischemic colitis. Other differential includes infectious vs inflammatory. Will order GI panel to look for infectious causes of hemorrhagic diarrhea. Patient will need a colonoscopy outpatient to look for ulcerative colitis. Will monitor H&H while patient is here. If it is ischemic colitis, should improve in the next few days. Otherwise, she did not take her blood pressure medications this morning and has hypertensive urgency. Will restart home BP meds. Plan / VTE VTE Prophylaxis Ordered?: Yes Plan Plan 1. Acute hemorrhagic colitis -Suspecting ischemic colitis from vasospasm -Working up infectious colitis with GI panel -Started on Flagyl and Cipro day 0 -Possible ulcerative colitis. Ordered ESR and CRP. Patient will need outpatient colonoscopy -Monitor H&H -Clear liquid diet -Protonix 2. Hypertensive urgency -Patient did not take her blood pressure medications today -Restarted Carvedilol and Losartan -Added PRN hydralazine 3. Chronic low back pain -Lidocaine patches -Acetaminophen PRN 4. Asthma -Continue albuterol PRN 5. DVT ppx -No chemical ppx due to hemorrhaging colitis -SCD and TEDs Disposition: pending improvement in abdominal pain and hematochezia. Pending results from GI panel for causes of hemorrhagic diarrhea. DORCAS CARRINGTON DO Oct 11, 2020 11:45
[2020-10-11 11:49] LABS: INR 1.08; PROTHROMBIN TIME 14.2 SECONDS (12.5-14.3)
[2020-10-11 11:50] LABS: PARTIAL THROMBOPLASTIN TIME 27.5 SECONDS (24.2-38.5)
[2020-10-11 14:00] VITALS: BP 150/87
[2020-10-11] MEDS: PANTOPRAZOLE 40MG VIAL (C9113 PER 1) IV SCH (14:33)
--- NOTE | 2020-10-11 15:28 | ECGEPIP ---
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
--- NOTE | 2020-10-11 15:36 | ECGEPIP ---
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 Order Number: [id number] Reading MD: Eamon Jerez Measurements Intervals [place] Rate: 75 P: 47 [place]: 152 QRS: -20 QRSD: 76 T: 39 QT: 398 QTc: 444 Interpretive Statements Normal sinus rhythm Minimal voltage criteria for LVH, may be normal variant ( R in aVL ) Possible Anterior infarct , age undetermined Nonspecific ST-T wave abnormalities Baseline artifact althought likely similar to tracing done 537 on same date Electronically Signed on 10-11-2020 15:36:33 EDT by Eamon Jerez
[2020-10-11] MEDS: **NOTE PATIENT COMMENT** MISC XX SCH (20:08)
[2020-10-11] MEDS: metroNIDAZOLE 500 MG in IV 1 EA IV SCH (20:10)
[2020-10-11] MEDS: CARVedilol 3.125 MG TAB PO SCH (20:11)
[2020-10-11 22:00] VITALS: BP 147/86
[2020-10-11] MEDS ORDERED: ONDANSETRON 4MG/2ML VIAL IV PRN (22:40)
[2020-10-11] MEDS ORDERED: diphenhydrAMINE 25MG CAP PO PRN (22:40)
[2020-10-11] MEDS ORDERED: CIPROFLOXACIN 400 MG in IV 1 EA IV SCH (23:00)
[2020-10-11] MEDS ORDERED: diphenhydrAMINE 50MG/ML VIAL (J1200) IV ONE (23:00)
[2020-10-12] MEDS: metroNIDAZOLE 500 MG in IV 1 EA IV SCH ×3 (03:13→19:28)
[2020-10-12 06:00] VITALS: BP 135/75
[2020-10-12 07:00] LABS: HEMATOCRIT 40.3 % (36.0-47.0); MEAN CORPUSCULAR HEMOGLOBIN 30.8 pg (27.0-33.0); MEAN CORPUSCULAR HGB CONC 31.3 g/dl (32.0-36.5); MEAN CORPUSCULAR VOLUME 98.5 fl (80.0-96.0); PLATELET COUNT, AUTOMATED 169 10^3/uL (150-450); RED BLOOD COUNT 4.09 10^6/uL (4.00-5.40); WHITE BLOOD COUNT 6.9 10^3/uL (4.0-10.0)
[2020-10-12 07:13] LABS: HEMOGLOBIN 12.6 g/dl (12.0-15.5)
[2020-10-12 07:21] LABS: BLOOD UREA NITROGEN 14 MG/DL (7-18); CARBON DIOXIDE LEVEL 28 MEQ/L (21-32); CHLORIDE LEVEL 108 MEQ/L (98-107); CREATININE FOR GFR 0.78 MG/DL (0.55-1.30); GLOMERULAR FILTRATION RATE > 60.0 (>39); GLUCOSE, FASTING 99 MG/DL (70-100); POTASSIUM SERUM 4.1 MEQ/L (3.5-5.1); SODIUM LEVEL 140 MEQ/L (136-145)
[2020-10-12] MEDS: LOSARTAN 50MG TABLET PO SCH (09:29)
[2020-10-12] MEDS: CARVedilol 3.125 MG TAB PO SCH ×2 (09:29→21:00)
[2020-10-12] MEDS: PANTOPRAZOLE 40MG VIAL (C9113 PER 1) IV SCH (12:09)
[2020-10-12] MEDS: LIDOCAINE 5% (LIDODERM) PATCH TOP PRN (12:09)
[2020-10-12 14:00] VITALS: BP 150/86
--- NOTE | 2020-10-12 18:44 | IPNPDOC ---
Text Note Date of Service The patient was seen on 10/12/20. NOTE Subjective: Patient stated that her abdominal pain significantly improved and she didn't have any bowel movement since yesterday evening. No any fever or chills Objective: GENERAL APPEARANCE: NAD HEENT: no scleral icterus, no JVD, EOMI CARDIOVASCULAR: S1S2 LUNGS: CTA ABDOMEN: soft & mild tenderness over left lower quadrant MUSCULOSKELETAL: no cyanosis, no swelling INTEGUMENT: no generalized pallor NEUROLOGICAL: cranial nerve function from 2-12 intact intact, follows commands, speech not dysarthric Assessment and plan Patient is 74 year old female with hypertension and diverticulosis who is here with left sided abdominal pain and hematochezia. Acute GI bleed Most likely lower GI Differential diagnosis includes diverticulitis, ischemic colitis CT scan showed Diffuse thickening of the colon. Consistent with infectious versus inflammatory versus ischemic colitis Continue levofloxacin and Flagyl day1 Patient tolerated full liquid diet well Continue to H&H Hypertensive urgency/ Hypertension Continue cardioprotective medications Blood pressures under control Chronic low back pain Lidocaine patches Acetaminophen PRN Asthma Not in acute exacerbation Continue albuterol PRN DVT ppx SCD and TEDs VS,Fishbone, I+O VS, Fishbone, I+O Laboratory Tests 10/12/20 06:12 Vital Signs Date Time Temp Pulse Resp B/P (MAP) Pulse Ox O2 Delivery O2 Flow Rate FiO2 10/12/20 14:00 98.0 70 17 150/86 (107) 97 Room Air I&O- Last 24 Hours up to 6 AM 10/12/20 06:00 Intake Total 1185 ml Output Total 1000 ml Balance 185 ml VLADIMIR WATERS DO Oct 12, 2020 18:44
[2020-10-12] MEDS ORDERED: LevoFLOXacin 750 MG TABLET PO ONE (19:15)
[2020-10-12] MEDS: **NOTE PATIENT COMMENT** MISC XX SCH (21:01)
[2020-10-12 22:00] VITALS: BP 160/93
[2020-10-13] MEDS: metroNIDAZOLE 500 MG in IV 1 EA IV SCH ×2 (03:04→12:00)
[2020-10-13 06:00] VITALS: BP 162/96
[2020-10-13] MEDS ORDERED: LevoFLOXacin 750 MG TABLET PO SCH (06:00)
[2020-10-13 06:32] LABS: BASO % 0.6 % (0.0-1.0); EOS # 0.1 10^3/uL (0.0-0.5); EOS % 1.3 % (0.0-3.0); HEMATOCRIT 43.7 % (36.0-47.0); HEMOGLOBIN 13.7 g/dl (12.0-15.5); LYMPH # 1.4 10^3/uL (1.5-5.0); LYMPH % 20.9 % (24.0-44.0); MEAN CORPUSCULAR HEMOGLOBIN 30.4 pg (27.0-33.0); MEAN CORPUSCULAR HGB CONC 31.4 g/dl (32.0-36.5); MEAN CORPUSCULAR VOLUME 97.1 fl (80.0-96.0); MONO # 0.5 10^3/uL (0.0-0.8); MONO % 7.2 % (2.0-8.0); NEUTROPHILS # 4.7 10^3/uL (1.5-8.5); NEUTROPHILS % 69.7 % (36.0-66.0); PLATELET COUNT, AUTOMATED 188 10^3/uL (150-450); WHITE BLOOD COUNT 6.8 10^3/uL (4.0-10.0)
[2020-10-13 06:55] LABS: ALBUMIN 3.2 GM/DL (3.2-5.2); ALT/SGPT 17 U/L (12-78); BILIRUBIN,TOTAL 0.7 MG/DL (0.2-1.0); BLOOD UREA NITROGEN 10 MG/DL (7-18); CALCIUM LEVEL 9.1 MG/DL (8.8-10.2); CARBON DIOXIDE LEVEL 28 MEQ/L (21-32); CHLORIDE LEVEL 107 MEQ/L (98-107); GLOMERULAR FILTRATION RATE > 60.0 (>39); GLUCOSE, FASTING 126 MG/DL (70-100); MAGNESIUM LEVEL 2.1 MG/DL (1.8-2.4); SODIUM LEVEL 141 MEQ/L (136-145); TOTAL PROTEIN 6.8 GM/DL (6.4-8.2)
[2020-10-13 09:51] VITALS: BP 165/100
[2020-10-13] MEDS: LOSARTAN 50MG TABLET PO SCH (09:51)
[2020-10-13] MEDS: CARVedilol 3.125 MG TAB PO SCH (09:52)
[2020-10-13] MEDS: LIDOCAINE 5% (LIDODERM) PATCH TOP PRN (09:52)
[2020-10-13] MEDS ORDERED: OMEP40CA4 PO (10:04)
[2020-10-13] MEDS ORDERED: LEVO750T13 PO ×2 (10:04→11:30)
[2020-10-13] MEDS ORDERED: AMLO1TAB25 PO (10:04)
[2020-10-13] MEDS ORDERED: FLAG500T PO (10:04)
[2020-10-13] MEDS: PANTOPRAZOLE 40MG VIAL (C9113 PER 1) IV SCH (12:19)
--- NOTE | 2020-10-13 16:50 | DS.PDOC ---
Discharge Summary General Date of Admission Oct 11, 2020 at 10:54 Date of Discharge 10/13/20 Discharge Summary PROCEDURES PERFORMED DURING STAY: [None]. ADMITTING DIAGNOSES: Acute GI bleed Chronic low back pain Asthma DISCHARGE DIAGNOSES: Acute GI bleed Chronic low back pain Asthma COMPLICATIONS/CHIEF COMPLAINT: Acute Hemorrhagic Colitis, Hypertensive Urgency. HISTORY OF PRESENT ILLNESS: Mrs. Juan is a 74 year old female with hypertens ion and diverticulosis who is here with left sided abdominal pain and hematochezia. On Sunday, she woke up with abdominal pain around midnight and had frequent diarrhea between midnight to 5AM. It was not completely watery. She went back to bed afterwards. Throughout Sunday, the pain was waxing and waning, but this morning, she had a trickle of blood down her leg. Then she past a large clot and had blood gushed out. She came to the ED for evaluation. She did not take her antihypertensives this morning, and was found to be hypertensive with SBP initially in the 200s. Otherwise, not tachycardia and no fever. WBC mildly elevated at 10.4 and hgb at 14.9. BUN mildly elevated at 23. CT abd/pelvi s with IV contrast demonstrates colitis from the splenic flexure to the colorectal junction. Patient denies any fever or chills. She has some blurry vision and chest discomfort from her hypertensive urgency. She also reports anxiety and she is grieving for her mother she recently lost this April. Physical exam is significant for abdominal tenderness on the left side. Right abdomen is not tender. She tells me she had colitis before in the past but they never told her the etiology. Patient will be admitted for acute hemorrhagic colitis and hypertensive urgency. HOSPITAL COURSE: During the hospital stay the following issues addressed Acute GI bleed Most likely lower GI Differential diagnosis includes diverticulitis, ischemic colitis CT scan showed Diffuse thickening of the colon. Consistent with infectious versus inflammatory versus ischemic colitis Patient received levofloxacin and Flagyl Patient tolerated soft mechanical diet well Continue to H&H Hypertensive urgency/ Hypertension Continue cardioprotective medications Blood pressures under control Chronic low back pain Lidocaine patches Acetaminophen PRN Asthma Not in acute exacerbation Continue albuterol PRN DISCHARGE MEDICATIONS: Please see below. ALLERGIES: Please see below. PHYSICAL EXAMINATION ON DISCHARGE: VITAL SIGNS: Please see below. GENERAL APPEARANCE: NAD HEENT: no scleral icterus, no JVD, EOMI CARDIOVASCULAR: S1S2 LUNGS: CTA ABDOMEN: soft & mild tenderness over left lower quadrant MUSCULOSKELETAL: no cyanosis, no swelling INTEGUMENT: no generalized pallor NEUROLOGICAL: cranial nerve function from 2-12 intact intact, follows commands, speech not dysarthric LABORATORY DATA: Please see below. IMAGING: See above PROGNOSIS: Fair ACTIVITY: [As tolerated]. DIET: Soft mechanical fall 5 days DISPOSITION: 01 Home, Self-Care. DISCHARGE INSTRUCTIONS: Follow-up with GI team in one week, follow-up with PCP in 3-5 days DISCHARGE CONDITION: [Stable]. TIME SPENT ON DISCHARGE: 40 minutes. Vital Signs/I&Os Vital Signs Date Time Temp Pulse Resp B/P (MAP) Pulse Ox O2 Delivery O2 Flow Rate FiO2 10/13/20 09:51 165/100 10/13/20 06:00 98.2 77 20 95 Room Air I&O- Last 24 Hours up to 6 AM 10/13/20 06:00 Intake Total 1340 ml Output Total 1550 ml Balance -210 ml Laboratory Data Labs 24H Laboratory Tests 2 10/13/20 06:02: Immature Granulocyte % (Auto) 0.3, Neutrophils (%) (Auto) 69.7H, Lymphocytes (%) (Auto) 20.9L, Monocytes (%) (Auto) 7.2, Eosinophils (%) (Auto) 1.3, Basophils (%) (Auto) 0.6, Neutrophils # (Auto) 4.7, Lymphocytes # (Auto) 1.4L, Monocytes # (Auto) 0.5, Eosinophils # (Auto) 0.1, Basophils # (Auto) 0.0, Nucleated Red Blood Cells % (auto) 0.0, Anion Gap 6L, Glomerular Filtration Rate > 60.0, Calcium Level 9.1, Magnesium Level 2.1, Total Bilirubin 0.7, Aspartate Amino Transf (AST/SGOT) 13, Alanine Aminotransferase (ALT/SGPT) 17, Alkaline Phosphatase 82, Total Protein 6.8, Albumin 3.2, Albumin/Globulin Ratio 0.9L CBC/BMP Laboratory Tests 10/13/20 06:02 Microbiology Microbiology 10/12/20 Urine Culture - Final, Complete Discharge Medications Scheduled Amlodipine Besylate (Amlodipine Besylate) 10 Mg Tablet, 10 MG PO DAILY Carvedilol (Carvedilol) 3.125 Mg Tablet, 3.125 MG PO BID, (Reported) Levofloxacin (Levofloxacin) 750 Mg Tablet, 750 MG PO Q48HP Losartan Potassium (Losartan Potassium) 100 Mg Tablet, 100 MG PO DAILY, (Reported) Metronidazole (Flagyl) 500 Mg Tablet, 500 MG PO Q8H FOR 10 DAYS Omeprazole (Omeprazole) 40 Mg Capsule.dr, 1 CAP PO DAILY Scheduled PRN Albuterol Sulfate (Proair Hfa) 8.5 Gm Hfa.aer.ad, 2 PUFF PO Q4H PRN for SHORTNESS OF BREATH, (Reported) Ipratropium Blanco (Ipratropium Blanco) 15 Ml [place], 2 SPRAYS NARES BID PRN for ALLERGIES, (Reported) Lidocaine (Lidocaine) 5% Adh..patch, 1 PATCH TOP DAILY PRN for BACK PAIN, (Reported) Allergies Coded Allergies: [place] And Derivatives (Verified Allergy, Unknown, 11/21/18) Penicillins (Verified Allergy, Unknown, HIVES, 10/11/20) strawberry (Verified Allergy, Unknown, 11/21/18) tomato (Verified Allergy, Unknown, 11/21/18) ciprofloxacin (Unverified Adverse Reaction, Mild, ITCHING, 10/12/20) Sulfa (Sulfonamide Antibiotics) (Verified Adverse Reaction, Unknown, N/V, 10/11/20) banana (Verified Adverse Reaction, Unknown, GI UPSET, 10/11/20) VLADIMIR WATERS DO Oct 13, 2020 16:50
[2020-10-15] MEDS ORDERED: LevoFLOXacin 750 MG TABLET PO SCH (06:00)
== END 2020-10-13 14:01 | disposition home or self-care (01) | DRG 379 ==
LOC: M ED 05:03 → M ED INP 10:54 → ENRESERV 12:19 → M MSPAV 14:08
PROVIDERS: ADMIT Internal Medicine; ATTEND Internal Medicine
DX: K57.33 Diverticulitis of large intestine without perforation or abscess with bleeding (principal); I16.0 Hypertensive urgency; J45.909 Unspecified asthma, uncomplicated; I10 Essential (primary) hypertension; Z63.4 Disappearance and death of family member; M54.5 Low back pain; Z79.899 Other long term (current) drug therapy; Z88.0 Allergy status to penicillin; Z88.2 Allergy status to sulfonamides; Z91.018 Allergy to other foods; Z20.822 Contact with and (suspected) exposure to COVID-19

== ENCOUNTER → 2020-11-02 | Outpatient (CLI) | payer OTHER ==
[~2020-11-02] MED LIST changes: +AMLO1TAB25 PO; +CARV3.12 PO; +IPRA6SP NARES; +LEVO750T13 PO; +LIDO1PAD TOP; +LOSA100T50 PO; +OMEP40CA4 PO; +PROAAER10 PO
--- NOTE | 2020-11-02 22:46 | REP ---
INDICATION: LT GROIN MASS / LUMP ? HERNIA COMPARISON: None. TECHNIQUE: Grayscale and color B-mode ultrasound examination using curved array transducer. FINDINGS: Directed ultrasound examination at the site of palpable mass adjacent to the left labia demonstrates an ovoid well-circumscribed avascular cyst with internal debris measuring 2.7 x 1.4 x 2.0 cm most compatible with sebaceous cyst. IMPRESSION: Ovoid nonspecific hypoechoic lesion appears relatively benign by ultrasound examination and likely representing sebaceous cyst. Clinical and physical correlation is recommended. <Electronically signed by Peter Deng > 11/02/20 [id number]
== END ==
LOC: M RAD 16:36
PROVIDERS: ATTEND Nurse Practitioner Primary Care
DX: R19.09 Other intra-abdominal and pelvic swelling, mass and lump (principal)

== ENCOUNTER 2020-12-05 14:34 | Emergency (ER) | payer BC, OTHER ==
[~2020-12-05] VITALS: Ht 154.9 cm; Wt 53.3 kg
[2020-12-05 17:39] LABS: BASO % 0.5 % (0.0-1.0); EOS # 0.1 10^3/uL (0.0-0.5); EOS % 1.2 % (0.0-3.0); HEMATOCRIT 45.5 % (36.0-47.0); HEMOGLOBIN 14.5 g/dl (12.0-15.5); LYMPH # 1.6 10^3/uL (1.5-5.0); LYMPH % 19.6 % (24.0-44.0); MEAN CORPUSCULAR HEMOGLOBIN 30.9 pg (27.0-33.0); MEAN CORPUSCULAR HGB CONC 31.9 g/dl (32.0-36.5); MONO # 0.5 10^3/uL (0.0-0.8); MONO % 5.5 % (2.0-8.0); PLATELET COUNT, AUTOMATED 232 10^3/uL (150-450); RED BLOOD COUNT 4.69 10^6/uL (4.00-5.40); WHITE BLOOD COUNT 8.2 10^3/uL (4.0-10.0)
[2020-12-05] MEDS ORDERED: ISOVUE-370 76% 100ML VIAL As Ordered ONE (17:41)
[2020-12-05 17:59] LABS: ALBUMIN 4.2 GM/DL (3.2-5.2); BILIRUBIN,DIRECT 0.1 MG/DL (0.0-0.2); BILIRUBIN,TOTAL 0.6 MG/DL (0.2-1.0); C REACTIVE PROTEIN QUANTITATIV 1.29 MG/DL (0.00-0.30); TOTAL PROTEIN 8.1 GM/DL (6.4-8.2)
[2020-12-05 18:10] LABS: ERYTHROCYTE SEDIMENTATION RATE 17 mm/hr (0-30)
[2020-12-05] MEDS ORDERED: CARVedilol 3.125 MG TAB PO ONE (19:30)
--- NOTE | 2020-12-05 19:40 | REPVR ---
PROCEDURE INFORMATION: Exam: CT Pelvis With Contrast Exam date and time: 12/05/2020 6:03 PM Age: 75 years old Clinical indication: Abscess groin/vulva/buttock TECHNIQUE: Imaging protocol: Computed tomography images of the pelvis with intravenous contrast. Radiation optimization: All CT scans at this facility use at least one of these dose optimization techniques: automated exposure control; mA and/or kV adjustment per patient size (includes targeted exams where dose is matched to clinical indication); or iterative reconstruction. Contrast material: ISOVUE 370; Contrast volume: 100 ml; Contrast route: INTRAVENOUS (IV); COMPARISON: CT ABD/PEL W/IV CONTRAST ONLY 10/11/2020 6:38 AM FINDINGS: Limited bowel: The imaged loops of small and large bowel are unremarkable. The bowel was not fully imaged. Appendix: Normal. There is no evidence for appendicitis. Intraperitoneal space: Unremarkable. No free air. No fluid collection. Vasculature: The iliac arteries, common femoral arteries, and proximal superficial femoral arteries are patent. Lymph nodes: No enlarged lymph nodes. Urinary bladder: The distended urinary bladder is normal in appearance. No stones or masses are seen in the bladder. Reproductive: There has been a hysterectomy. The ovaries are unremarkable. Bones/joints: There is no fracture or dislocation. No suspicious osteolytic or osteoblastic lesion. There are no bony destructive changes. There are degenerative changes involving the lumbar spine. The lumbar spine was not fully imaged. Soft tissues: There is a small fat containing umbilical hernia. There is a 1.9 cm x 3.1 cm x 2.1 cm rim enhancing soft tissue fluid collecting in the posterior aspect of the left labia majora with surrounding inflammatory fat stranding. No soft tissue gas is noted. IMPRESSION: 1.9 cm x 3.1 cm x 2.1 cm abscess in the posterior aspect of the left labia majora with surrounding cellulitis. Electronically signed by: Armin Horton On 12/05/2020 19:39:59 PM
[2020-12-05] MEDS ORDERED: VANCOMYCIN HCL 1,000 MG in IV FLUID PLACE HOLDER 1 EA IV ONE (20:20)
[2020-12-05] MEDS ORDERED: VANCOMYCIN HCL 1,000 MG, VIAL MATE ADAPTER 1 EACH in NS 250 ML IV ONE (20:25)
[2020-12-05 21:28] VITALS: BP 192/97
[2020-12-05] MEDS ORDERED: diphenhydrAMINE 50MG/ML VIAL (J1200) IV ONE (22:30)
[2020-12-05] MEDS ORDERED: methylPREDNISolone 125MG 2ML VIAL IV ONE (22:45)
[2020-12-05] MEDS ORDERED: DOXY1CAP62 PO (23:47)
[2020-12-06 00:14] VITALS: BP 162/99
--- NOTE | 2020-12-06 05:37 | ECGEPIP ---
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
--- NOTE | 2020-12-06 12:46 | ED PDOC ---
Post-Departure Follow-Up dr andrews faxed ct pelvis for fu Kyrie Canela MD Dec 06, 2020 12:46
== END 2020-12-06 00:16 | disposition home or self-care (01) ==
LOC: M ED 14:34
DX: N76.4 Abscess of vulva (principal); E11.9 Type 2 diabetes mellitus without complications; I10 Essential (primary) hypertension; J45.909 Unspecified asthma, uncomplicated; E03.9 Hypothyroidism, unspecified; F41.9 Anxiety disorder, unspecified; Z79.899 Other long term (current) drug therapy; Z88.0 Allergy status to penicillin; Z88.2 Allergy status to sulfonamides
CPT/HCPCS: 72193; 80047; 80076; 83605; 85025; 85652; 86140; 87040; 93005; 96365; 96366; 96375; 99284; J1200; J2930; J3370; Q9967

== ENCOUNTER 2020-12-10 10:41 | Emergency (ER) | payer BC ==
[~2020-12-10] VITALS: Ht 152.4 cm; Wt 50.9 kg
[~2020-12-10 10:41] MED LIST changes: +DOXY1CAP62 PO
[2020-12-10] MEDS ORDERED: NS 1,020 ML IV ONE (11:50)
[2020-12-10 12:09] LABS: BASO % 0.3 % (0.0-1.0); EOS % 0.4 % (0.0-3.0); HEMATOCRIT 42.7 % (36.0-47.0); HEMOGLOBIN 13.6 g/dl (12.0-15.5); LYMPH # 1.2 10^3/uL (1.5-5.0); LYMPH % 11.8 % (24.0-44.0); MEAN CORPUSCULAR HEMOGLOBIN 30.8 pg (27.0-33.0); MEAN CORPUSCULAR HGB CONC 31.9 g/dl (32.0-36.5); MEAN CORPUSCULAR VOLUME 96.6 fl (80.0-96.0); MONO # 0.8 10^3/uL (0.0-0.8); MONO % 7.6 % (2.0-8.0); NEUTROPHILS # 7.9 10^3/uL (1.5-8.5); NEUTROPHILS % 79.6 % (36.0-66.0); PLATELET COUNT, AUTOMATED 243 10^3/uL (150-450); RED BLOOD COUNT 4.42 10^6/uL (4.00-5.40); WHITE BLOOD COUNT 9.9 10^3/uL (4.0-10.0)
[2020-12-10] MEDS ORDERED: ISOVUE-370 76% 100ML VIAL As Ordered ONE (12:14)
[2020-12-10 12:30] LABS: ERYTHROCYTE SEDIMENTATION RATE 43 mm/hr (0-30)
[2020-12-10 12:41] LABS: ALBUMIN 3.1 GM/DL (3.2-5.2); BILIRUBIN,DIRECT 0.2 MG/DL (0.0-0.2); BILIRUBIN,TOTAL 0.8 MG/DL (0.2-1.0); C REACTIVE PROTEIN QUANTITATIV 7.66 MG/DL (0.00-0.30); TOTAL PROTEIN 7.2 GM/DL (6.4-8.2)
[2020-12-10] MEDS ORDERED: KETOROLAC TROMETHAMINE 10 MG TAB PO ONE (12:55)
[2020-12-10 12:58] LABS: RSV AMPLIFICATION NEGATIVE (NEGATIVE)
--- NOTE | 2020-12-10 13:03 | REP ---
INDICATION: abscess labia /groin. COMPARISON: 12/05/2020. TECHNIQUE: Following the intravenous administration of 100 cc of Isovue 370, axial images are obtained through the pelvis. Sagittal and coronal reconstruction images are performed. FINDINGS: The urinary bladder is mildly distended and grossly unremarkable. No adenopathy or free fluid is seen in the pelvis. There has been a prior hysterectomy. The appendix is visualized and is normal. No bowel wall thickening is seen. In the left posterior labial soft tissues a lobulated fluid collection is again seen. There is a thick irregular enhancing rim. This measures approximately 3.2 x 4.8 x 2.4 cm and has increased in size since the prior exam. There is surrounding streaky inflammatory change/edema. IMPRESSION: Increased size of posterior left labial abscess as discussed in detail above. <Electronically signed by Nathan Rockwell > 12/10/20 [id number]
[2020-12-10] MEDS ORDERED: LIDOCAINE 1% MDV 20ML VIAL SC ONE (16:40)
[2020-12-10] MEDS ORDERED: MORPHINE 4 MG/ML 1ML VIAL/SYRINGE (J2270) IV ONE (17:25)
--- NOTE | 2020-12-10 18:22 | CR.PDOC ---
General Date of Consultation: Dec 10, 2020 Consultation REASON FOR CONSULTATION/CHIEF COMPLAINT: Vulvar abscess (left side). HISTORY OF PRESENT ILLNESS: Patient has had increasing vulvar pain X1 week. States she's had a "cyst" in this area x 10 years. Seen in the [facility] ER twice for this complaint, and serial CT scans show increased size of a left sided vulvar abscess (4.8cm in greatest dimension). Previous provider Rx'd antibiotic to he lp treat her vulvar infection/abscess, and she has had no relief/improvement with the antibiotic. Patient cannot comfortably move, stand, sit, or wipe when she uses the restroom. States she is in severe distress and pain. ALLERGIES: Please see above HOME MEDICATIONS: Please see [facility] ER record PAST MEDICAL HISTORY: See ER Record PAST SURGICAL HISTORY: See ER Record SOCIAL HISTORY: Lives alone with her pets PHYSICAL EXAMINATION: See Vitals in EMR Left sided vulvar abscess approx 5-6cm. Along labia majora and tracking toward mons pubis anteriorly and the anus posteriorly. Dome of abscess easily identified along mid portion of labia majora. Erythema and induration noted throughout entire left side of the vulva. No e/o Bartholin's cyst/abscess. LABORATORY DATA: Please see below. No elevated WBC RADS: see CT scan report. ASSESSMENT/PLAN: 75yo with left vulvar abscess Plan is for I&D under local See procedure note (Patient tolerated procedure and remained stable) Close clinical follow up with me planned; 12/15/20 at 1420 Discontinue antibiotics Fever and pain precautions reviewed Mikaela Crain DO FACOG Vital Signs/I&O Vital Signs Date Time Temp Pulse Resp B/P (MAP) Pulse Ox O2 Delivery O2 Flow Rate FiO2 12/10/20 17:29 20 Room Air 12/10/20 14:36 98.2 72 149/72 (97) 97 Laboratory Data Labs 24H Laboratory Tests 2 12/10/20 11:57: Immature Granulocyte % (Auto) 0.3, Neutrophils (%) (Auto) 79.6H, Lymphocytes (%) (Auto) 11.8L, Monocytes (%) (Auto) 7.6, Eosinophils (%) (Auto) 0.4, Basophils (%) (Auto) 0.3, Neutrophils # (Auto) 7.9, Lymphocytes # (Auto) 1.2L, Monocytes # (Auto) 0.8, Eosinophils # (Auto) 0.0, Basophils # (Auto) 0.0, Nucleated Red Blo od Cells % (auto) 0.0, Erythrocyte Sedimentation Rate 43H, Lactic Acid Level 0.9, Total Bilirubin 0.8, Direct Bilirubin 0.2, Aspartate Amino Transf (AST/SGOT) 13, Alanine Aminotransferase (ALT/SGPT) 20, Alkaline Phosphatase 87, C-Reactive Protein, Quantitative 7.66H, Total Protein 7.2, Albumin 3.1L, Albumin/Globulin Ratio 0.8L, Lipase 98, Coronavirus (COVID-19)(PCR) NEGATIVE, Influenza Type A (RT-PCR) NEGATIVE, Influenza Type B (RT-PCR) NEGATIVE, Respiratory Syncytial Virus (PCR) NEGATIVE 12/10/20 11:58: POC Glucose (Misc Panel) 119H, POC Sodium (Misc Panel) 139, POC Potassium (Misc Panel) 4.2, POC Chloride (Misc Panel) 101, POC Total CO2 (Misc Panel) 26.0, POC Blood Urea Nitrogen (Misc Panel 33H, POC Ionized Calcium (Misc Panel) 5.0, POC Creatinine (Misc Panel) 1.0, POC Hematocrit (Misc Panel) 42.0 CBC/BMP Laboratory Tests 12/10/20 11:57 Microbiology Microbiology 12/10/20 Blood Culture, Received Pending 12/10/20 Blood Culture, Received Pending Allergies Coded Allergies: levofloxacin (Verified Allergy, Intermediate, 12/10/20) vancomycin (Verified Allergy, Intermediate, Hives, 12/05/20) Penicillins (Verified Allergy, Mild, HIVES, 12/10/20) [place] And Derivatives (Verified Allergy, Unknown, 11/21/18) strawberry (Verified Allergy, Unknown, 11/21/18) tomato (Verified Allergy, Unknown, 11/21/18) amlodipine (Verified Adverse Reaction, Intermediate, hand and foot swelling, 12/10/20) Sulfa (Sulfonamide Antibiotics) (Verified Adverse Reaction, Mild, N/V, 12/10/20) banana (Verified Adverse Reaction, Mild, GI UPSET, 12/10/20) ciprofloxacin (Unverified Adverse Reaction, Mild, ITCHING, 10/12/20) metronidazole (Verified Adverse Reaction, Mild, Thrush, 12/10/20) Home Medications Scheduled Amlodipine Besylate (Amlodipine Besylate) 10 Mg Tablet, 10 MG PO DAILY for 30 Days, #30 Carvedilol (Carvedilol) 3.125 Mg Tablet, 3.125 MG PO BID, (Reported) Doxycycline Monohydrate (Doxycycline Monohydrate) 100 Mg Capsule, 100 MG PO Q12H, #20 Losartan Potassium (Losartan Potassium) 100 Mg Tablet, 100 MG PO DAILY, (Reported) Omeprazole (Omeprazole) 40 Mg Capsule.dr, 1 CAP PO DAILY for 30 Days, #30 Scheduled PRN Albuterol Sulfate (Proair Hfa) 8.5 Gm Hfa.aer.ad, 2 PUFF PO Q4H PRN for SHORTNESS OF BREATH, (Reported) Ipratropium [place] (Ipratropium [place]) 15 Ml [place], 2 SPRAYS NARES BID PRN for ALLERGIES, (Reported) Lidocaine (Lidocaine) 5% Adh..patch, 1 PATCH TOP DAILY PRN for BACK PAIN, (Reported) LEONCOI CRAIN DO Dec 10, 2020 18:22
--- NOTE | 2020-12-10 18:30 | ROOPDOC ---
[facility] Report Of Operation Report of Operation DATE OF PROCEDURE: 12/10/20 PREPROCEDURE DIAGNOSES: Left vulvar abscess (labium major) POSTPROCEDURE DIAGNOSES: same PROCEDURE PERFORMED: Incision and drainage of left vulvar abscess. SURGEON: Mikaela Crain DO FACOG ANESTHESIA: Local; Lidocaine 1% with epinephrine ESTIMATED BLOOD LOSS: Approximately 20 mL. COMPLICATIONS: none PROCEDURE: Risks, benefits, alternatives, and indications were reviewed and informed consent obtained. Local anesthesia was injected over the dome of the abscess along the planned incision site (5mL). An 11 blade was used to incise the abscess. Approx 1.5cm incision made. Copious amount of exudative fluid was expressed. The internal loculations were broken up with a hemostat, which expressed more fluid. The fluid was cultured. The induration and erythema was markedly improved after the abscess was decompressed. Her discomfort/pressure also improved. She tolerated the procedure and remained stable throughout. The incision was left open to drain and heal by secondary intention. A pressure bandage was applied. Excellent hemostasis was noted. DO NAYE Malik JONATHAN R. DO Dec 10, 2020 18:30
[2020-12-10 19:23] VITALS: BP 168/74
== END 2020-12-10 19:33 | disposition home or self-care (01) ==
LOC: M ED 10:41
DX: N76.2 Acute vulvitis (principal); N76.4 Abscess of vulva; I10 Essential (primary) hypertension; Z88.0 Allergy status to penicillin; Z88.1 Allergy status to other antibiotic agents; Z88.2 Allergy status to sulfonamides; Z88.8 Allergy status to other drugs, medicaments and biological substances; Z91.018 Allergy to other foods; Z79.899 Other long term (current) drug therapy
CPT/HCPCS: 36415; 56405; 72193; 80047; 80076; 83605; 83690; 85025; 85652; 86140; 87040; 87070; 87077; 87631; 96361; 96374; 99284; J2270; Q9967

== ENCOUNTER → 2021-01-28 | Outpatient (CLI) | payer BC ==
--- NOTE | 2021-01-28 11:28 | REP ---
INDICATION: PAIN LEONARDA LEGS. COMPARISON: None. TECHNIQUE: Bilateral lower extremity arterial Doppler ultrasound. FINDINGS: Ankle brachial indices could not be determined as the patient was unable to tolerate sufficient cuff pressure. Mild atherosclerotic plaquing is seen in the lower extremity arterial tree. No high-grade stenosis or occlusion is seen in either leg. Relatively normal triphasic and biphasic Doppler waveforms are noted throughout. 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 Mild atherosclerotic plaquing. <Electronically signed by Victoriano Pop > 01/28/21 [id number]
== END ==
LOC: M RAD 09:44
PROVIDERS: ATTEND Physician Assistant
DX: M79.604 Pain in right leg (principal); M79.605 Pain in left leg

== ENCOUNTER → 2021-09-22 | Outpatient (CLI) | payer BC, OTHER ==
[~2021-09-22] MED LIST changes: +ACET-839 PO; +DOXY-443 PO; -DOXY1CAP62 PO; +LOSA100T45 PO; -LOSA100T50 PO
== END ==
LOC: M LABSMTC 10:54
PROVIDERS: ATTEND Anesthesiology
DX: Z11.52 Encounter for screening for COVID-19 (principal); Z20.822 Contact with and (suspected) exposure to COVID-19

== ENCOUNTER 2021-09-27 08:11 | Day surgery (SDC) | payer OTHER ==
[~2021-09-27] VITALS: Ht 154.9 cm; Wt 55.7 kg
[~2021-09-27 08:11] MED LIST changes: +LIDOCAINE 2% 100MG/5ML SDV (FOR ANES.) As Ordered ONE; +NS 1,000 ML IV ONE; +propofoL 200 MG/20 ML VIAL As Ordered ONE
[2021-09-27] MEDS ORDERED: hydrALAZINE 20MG/ML 1ML VIAL (J0360 PER 20MG) As Ordered ONE (09:54)
[2021-09-27 10:44] VITALS: BP 122/60
== END 2021-09-27 10:45 | disposition home or self-care (01) ==
LOC: M OPP 08:11
PROVIDERS: ATTEND Internal Medicine Gastroenterology
DX: K92.1 Melena (principal); K57.30 Diverticulosis of large intestine without perforation or abscess without bleeding; K64.8 Other hemorrhoids; R10.84 Generalized abdominal pain; R93.3 Abnormal findings on diagnostic imaging of other parts of digestive tract; Z79.1 Long term (current) use of non-steroidal anti-inflammatories (NSAID); Z79.899 Other long term (current) drug therapy; Z88.0 Allergy status to penicillin; Z88.1 Allergy status to other antibiotic agents; Z88.2 Allergy status to sulfonamides; Z88.8 Allergy status to other drugs, medicaments and biological substances; Z87.11 Personal history of peptic ulcer disease
CPT/HCPCS: 45378; J0360

== ENCOUNTER 2021-12-29 10:59 | Emergency (ER) | payer BC, OTHER ==
[~2021-12-29] VITALS: Ht 157.5 cm; Wt 56.0 kg
[~2021-12-29 10:59] MED LIST changes: +LEVO1TAB40 PO; -LEVO750T13 PO; -LIDOCAINE 2% 100MG/5ML SDV (FOR ANES.) As Ordered ONE; -NS 1,000 ML IV ONE; -propofoL 200 MG/20 ML VIAL As Ordered ONE
[2021-12-29] MEDS ORDERED: AMLO2.5T3 (11:13)
[2021-12-29] MEDS ORDERED: KETOROLAC 60MG 2ML VIAL IM ONE (12:30)
[2021-12-29 13:30] VITALS: BP 148/89
== END 2021-12-29 13:52 | disposition home or self-care (01) ==
LOC: M ED 10:59
DX: M54.50 Low back pain, unspecified (principal); S30.810A Abrasion of lower back and pelvis, initial encounter; S20.219A Contusion of unspecified front wall of thorax, initial encounter; W10.8XXA Fall (on) (from) other stairs and steps, initial encounter; Y92.89 Other specified places as the place of occurrence of the external cause; Z79.899 Other long term (current) drug therapy; Z88.0 Allergy status to penicillin; Z88.1 Allergy status to other antibiotic agents; Z88.2 Allergy status to sulfonamides; Z91.018 Allergy to other foods
CPT/HCPCS: 71250; 72131; 96372; 99283; J1885

== ENCOUNTER → 2022-08-13 | Outpatient (REF) | payer BC, OTHER ==
[~2022-08-13] MED LIST changes: +AMLO2.5T3
[2022-08-14 13:44] LABS: APPEARANCE, URINE CLOUDY (CLEAR); BACTERIA, URINE AUTO 2+ (NEGATIVE); BILIRUBIN, URINE AUTO NEGATIVE (NEGATIVE); BLOOD, URINE BLOOD 2+ (NEGATIVE); COLOR, URINE YELLOW (YELLOW); GLUCOSE, URINE (UA) AUTO NEGATIVE (NEGATIVE); KETONE, URINE AUTO NEGATIVE (NEGATIVE); LEUKOCYTE ESTERASE, URINE AUTO 3+ (NEGATIVE); MUCUS, URINE SMALL (NEGATIVE); NITRITE, URINE AUTO NEGATIVE (NEGATIVE); PROTEIN, URINE AUTO NEGATIVE (NEGATIVE); RBC, URINE AUTO 16 /HPF (0-3); SPECIFIC GRAVITY URINE AUTO 1.019 (1.002-1.035); SQUAMOUS EPITHELIAL CELL UR AU 4 /HPF (0-6); UROBILINOGEN, URINE AUTO 0.2 mg/dL (0.0-2.0); WBC, URINE AUTO 126 /HPF (0-3)
== END ==
LOC: M LAB REF 13:06
PROVIDERS: ATTEND Physician Assistant Medical
DX: N39.0 Urinary tract infection, site not specified (principal)

== ENCOUNTER → 2022-08-16 | Outpatient (REF) | payer BC, OTHER | LOC: M SFHCWAGY 12:49 | PROVIDERS: ATTEND Nurse Practitioner Family | DX: R30.0 Dysuria (principal) ==

== ENCOUNTER → 2023-09-24 | Outpatient (REF) | payer BC ==
[~2023-09-24] MED LIST changes: -CATA0.3D TOP; +CLON1PAT TOP; +DOXY-323 PO; -DOXY-443 PO; -LOSA100T45 PO; +LOSA100T46 PO
== END ==
LOC: M PLALAB 15:50
PROVIDERS: ATTEND Nurse Practitioner Family
DX: N73.9 Female pelvic inflammatory disease, unspecified (principal)

== ENCOUNTER → 2024-08-08 | Outpatient (CLI) | payer BC ==
[~2024-08-08] MED LIST changes: -DOXY-323 PO; +DOXY-441 PO
== END ==
LOC: M PLAIMG 12:25
PROVIDERS: ATTEND Registered Nurse
DX: R06.02 Shortness of breath (principal); I11.0 Hypertensive heart disease with heart failure; I50.30 Unspecified diastolic (congestive) heart failure

== ENCOUNTER → 2024-12-18 | Outpatient (CLI) | payer BC ==
[~2024-12-18] MED LIST changes: +AMLO-751 PO; -AMLO10TA PO
== END ==
LOC: M ADAMS 11:11
PROVIDERS: ATTEND Nurse Practitioner Family
DX: M79.641 Pain in right hand (principal); M79.642 Pain in left hand

== ENCOUNTER → 2025-02-06 | Outpatient (CLI) | payer BC ==
[2025-02-06 15:06] LABS: CALCIUM LEVEL 9.4 MG/DL (8.3-10.6); CARBON DIOXIDE LEVEL 30.0 MMOL/L (20-31); CHLORIDE LEVEL 104.0 MMOL/L (98-107); CHOLESTEROL LEVEL 212.0 MG/DL (<200); CHOLESTEROL RISK RATIO 3.78 (<5); CREATININE FOR GFR 0.79 MG/DL (0.55-1.30); GLOMERULAR FILTRATION RATE 76.0 (>39); LDL CHOLESTEROL 127.6 MG/DL (<100); MAGNESIUM LEVEL 2.1 MG/DL (1.8-2.4); NON-HDL-C 156.0 MG/DL; POTASSIUM SERUM 4.1 MMOL/L (3.5-5.1); SODIUM LEVEL 143.0 MMOL/L (136-145); TRIGLYCERIDES LEVEL 142.0 MG/DL (<150)
[2025-02-06 15:11] LABS: BASO # 0.0 10^3/uL (0.0-0.2); BASO % 0.6 % (0.0-1.0); EOS # 0.1 10^3/uL (0.0-0.5); EOS % 1.4 % (0.0-3.0); LYMPH # 1.7 10^3/uL (1.5-5.0); LYMPH % 26.1 % (24.0-44.0); MONO # 0.4 10^3/uL (0.0-0.8); MONO % 6.7 % (2.0-8.0); NEUTROPHILS # 4.1 10^3/uL (1.5-8.5); NEUTROPHILS % 65.0 % (36.0-66.0); PLATELET COUNT, AUTOMATED 239 10^3/uL (150-450)
== END ==
LOC: M LABDRWAD 08:01
PROVIDERS: ATTEND Nurse Practitioner Family
DX: E78.2 Mixed hyperlipidemia (principal); I10 Essential (primary) hypertension

== ENCOUNTER → 2025-04-21 | Outpatient (CLI) | payer BC | LOC: M CARPUL 09:10 | PROVIDERS: ATTEND Nurse Practitioner Family | DX: R07.9 Chest pain, unspecified (principal) ==